=== PATIENT | male | born 1995 | race Caucasian/White ===

== ENCOUNTER 2019-10-28 12:52 | Inpatient (IN) ==
[2019-10-28 13:29] LABS: Urine Appearance Clear; Urine Bilirubin Negative (Negative); Urine Blood Negative (Negative); Urine Color Straw; Urine Glucose Negative (Negative); Urine Ketones Negative (Negative); Urine Nitrite Negative (Negative); Urine Protein Negative (Negative); Urine Specific Gravity 1.005 (1.010-1.030); Urine Urobilinogen Negative (Negative)
[2019-10-28 13:55] LABS: Urine Benzodiazepine Screen None Detected (None Detect); Urine Opiates Screen None Detected (None Detect)
[2019-10-28 14:05] LABS: ABS Eosinophils 0.1 10^3/ul (0-0.6); ABS Lymphocytes 1.4 10^3/ul (1.0-4.8); ABS Monocytes 0.3 10^3/ul (0-0.8); Hematocrit 43 % (42-52); Hemoglobin 15.4 g/dL (14.0-18.0); Lymphocyte % 21.8 %; Mean Corpuscular HGB Conc 36 g/dL (31-36); Mean Corpuscular Hemoglobin 29 pg (27-31); Mean Corpuscular Volume 82 fL (80-94); Mean Platelet Volume 8.4 fL (7.4-10.4); Nucleated Red Blood Cells % 0.4; Platelet Count 194 10^3/uL (150-450); Red Blood Count 5.25 10^6 /uL (4.18-5.48); Red Cell Distribution Width 13 % (10-15); White Blood Count 6.6 10^3/uL (3.5-10.8)
[2019-10-28] MEDS ORDERED: Al Hydrox/Mg Hydrox/Simet LIQ 30 ML UDC PO PRN (14:15)
[2019-10-28 14:20] LABS: ALT 14 U/L (7-52); AST 17 U/L (13-39); Albumin/Globulin Ratio 1.9 (1-3); Alkaline Phosphatase 68 U/L (34-104); Anion Gap 9 mmol/L (2-11); BUN/Creatinine Ratio 13.2 (8-20); Blood Urea Nitrogen 14 mg/dL (6-24); CO2 Carbon Dioxide 22 mmol/L (22-32); Calcium 9.8 mg/dL (8.6-10.3); Chloride 107 mmol/L (101-111); EGFR Non-African American 85.1 (>60); Globulin 2.7 g/dL (2-4); Glucose 111 mg/dL (70-100); Potassium 3.4 mmol/L (3.5-5.0); Sodium 138 mmol/L (135-145); Total Protein 7.7 g/dL (6.4-8.9)
[2019-10-28 15:15] LABS: Acetaminophen < 15 mcg/mL; Alcohol, S < 10 mg/dL (<10); Salicylate < 2.50 mg/dL (<30)
[2019-10-28] MEDS: Multivitamins/Minerals TAB PO SCH (19:58)
[2019-10-29] MEDS: Multivitamins/Minerals TAB PO SCH (09:39)
[2019-10-30 08:15] LABS: HDL Cholesterol 44.4 mg/dL
[2019-10-30] MEDS: Multivitamins/Minerals TAB PO SCH (09:04)
[2019-10-31] MEDS: Multivitamins/Minerals TAB PO SCH (09:05)
[2019-11-01] MEDS: Multivitamins/Minerals TAB PO SCH (08:52)
[2019-11-02] MEDS: Multivitamins/Minerals TAB PO SCH (08:47)
[2019-11-03] MEDS: Multivitamins/Minerals TAB PO SCH (08:36)
[2019-11-03 10:01] VITALS: BP 128/85
== END 2019-11-03 12:20 | disposition home or self-care (01) | DRG 881 ==
LOC: ED 12:52 → BSU 14:15
PROVIDERS: ADMIT Psychiatry & Neurology Psychiatry; ATTEND Psychiatry & Neurology Psychiatry